=== PATIENT | male | born 1960 | race Caucasian/White ===

== ENCOUNTER 2022-03-18 09:39 | Outpatient (REF) | payer OTHER, SELFPAY ==
--- NOTE | 2022-03-18 | EMG_ITS ---
Left tibial and peroneal motor and sensory studies were performed. Bilateral lateral femoral cutaneous studies were performed. Left superficial, peroneal and sural sensory studies were performed. Left tibial H-reflex was obtained and paraspinal muscles were tested with a needle. IMPRESSION: 1. 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 2. Underlying mild sensorimotor peripheral neuropathy. MD FIGUEROA Shen/HORTENSIAL / [id number]
== END 2022-03-18 09:40 | disposition home or self-care (01) ==
LOC: HO.NEURO 09:39
PROVIDERS: PCP Internal Medicine; Visit Provider Internal Medicine
DX: G57.13 Meralgia paresthetica, bilateral lower limbs (principal)
CPT/HCPCS: 95886; 95910